=== PATIENT | female | born 1980 | race Asian ===

== ENCOUNTER 2019-08-07 14:29 | Emergency (ER) | payer BC, OTHER ==
[~2019-08-07] VITALS: Ht 149.9 cm; Wt 54.4 kg
[2019-08-07 14:41] VITALS: BP 127/76
== END 2019-08-07 16:38 | disposition home or self-care (01) ==
LOC: ER 14:29
DX: J45.909 Unspecified asthma, uncomplicated (principal); Z76.0 Encounter for issue of repeat prescription

== ENCOUNTER 2019-09-21 12:29 | Emergency (ER) | payer BC ==
[~2019-09-21] VITALS: Ht 149.9 cm; Wt 54.4 kg
[2019-09-21 12:49] VITALS: BP 112/79
== END 2019-09-21 18:05 | disposition left against medical advice (07) ==
LOC: ER 12:29
DX: M79.601 Pain in right arm (principal); Z53.21 Procedure and treatment not carried out due to patient leaving prior to being seen by health care provider

== ENCOUNTER 2024-01-12 20:21 | Emergency (ER) | payer BC ==
[~2024-01-12] VITALS: Ht 149.9 cm; Wt 55.0 kg
[2024-01-12 21:36] LABS: Basophils # (auto) 0.1 10 ^3/uL (0-0.2); Basophils % (auto) 1.2 % (0.0-2.0); Eosinophils # (auto) 0.5 10 ^3/uL (0-0.8); Eosinophils % (auto) 5.1 % (0.0-7.0); Hematocrit 38.1 % (36.0-46.0); Hemoglobin 12.8 g/dL (12.2-16.2); Lymphocytes # (auto) 4.1 10 ^3/uL (0.4-5.4); Lymphocytes % (auto) 45.3 % (10.0-50.0); Mean Corpuscular Hemoglobin 29.5 pg (28.0-32.0); Mean Corpuscular Hgb Conc. 33.5 g/dL (32.0-36.0); Mean Corpuscular Volume 88.1 fL (80.0-100.0); Monocytes # (auto) 0.5 10 ^3/uL (0-1.3); Monocytes % (auto) 5.4 % (0.0-12.0); Neutrophils # (auto) 3.9 10 ^3/uL (1.6-8.6); Nucleated Red Blood Cells % 0.1 %; Red Blood Cells 4.32 10^6/uL (4.0-5.20); Red Cell Distribution Width 13.4 % (11.8-14.3); White Blood Cell 9.1 10^3/uL (4.4-10.8)
[2024-01-12 21:52] LABS: Alanine Aminotransferase 33 U/L (7-40); Albumin 4.2 g/dL (3.2-4.8); Alkaline Phosphatase 74 U/L (46-116); Anion Gap 8 (5-15); Aspartate Aminotransferase 24 U/L (13-40); BUN/Creatinine Ratio 9.7 (10.0-20.0); Bilirubin, Total 0.3 mg/dL (0.2-1.0); Blood Urea Nitrogen 7 mg/dL (9-23); Calcium 9.3 mg/dL (8.7-10.4); Carbon Dioxide 24 mmol/L (20-30); Chloride 108 mmol/L (98-107); Glucose 93 mg/dL (74-106); Lipase 54 U/L (12-53); Potassium 3.6 mmol/L (3.5-5.1); Sodium 140 mmol/L (136-145); Total Protein 7.2 g/dL (5.7-8.2)
[2024-01-13 00:26] VITALS: BP 129/90; PULSE 53; RESP 16; TEMP 97.7; O2SAT 98
== END 2024-01-13 00:29 | disposition home or self-care (01) ==
LOC: EDBD 20:21 → ER 20:21
DX: K59.00 Constipation, unspecified (principal); J45.909 Unspecified asthma, uncomplicated
CPT/HCPCS: 36415; 74176; 80053; 83690; 85025